=== PATIENT | male | born 1945 | race Caucasian/White ===

== ENCOUNTER 2016-05-20 14:08 | Inpatient (IN) | payer MEDICARE ==
[~2016-05-20] VITALS: Ht 182.9 cm; Wt 94.2 kg
[~2016-05-20 14:08] MED LIST: LISI2.5T3 PO; LORA1TAB PO; LORTA5 PO; LOVA20TA PO; METO25 PO; PREV30CA36 PO; PROS5TAB2 PO; REST15CA PO; RIVA10 PO; SERT-129 PO; TAMS0.4C67 PO; VITA20002 PO
--- NOTE | 2016-05-24 05:26 | MH ---
cc: CHRIS MERCER DATE OF ADMISSION: 06/01/2016 ADMITTING DIAGNOSIS Osteoarthritis of the right hip, effusion right hip, pain right hip, gait disturbance. HISTORY The patient is a 70-year-old white male who has experienced pain of his right hip of at least 6 months' duration. He had noted the gradual onset of soreness generalized about his right groin area being aggravated by weightbearing activities for which he initially conformed to conservative management. He had initially followed a walking exercise program but became markedly limited because of the associated pain and had a sensation of limb length discrepancy with shortening on the right side. He presented to the undersigned physician in March of this past year reporting ongoing difficulties as related to his daily routine. His x-ray studies revealed obvious degenerative changes with narrowing of the joint space and marginal hypertrophic bony reaction. Findings and treatment options were reviewed with the patient at that time. Recommendation was made to proceed with a MRI scan evaluation which was subsequently completed, the results of which identified a degenerative arthritis with narrowing of the articular cartilage and edema in the subcortical medullary bone in the roof of the acetabulum. There was separation of the labrum about the rim of the acetabulum and an effusion within the joint space. The patient remained symptomatic with pain generalized about his right groin area that was aggravated by all forms of weightbearing activities. He had to subsequently discontinue all exercise activities which had included playing golf and returned to the office in more recent follow-up expressing his desire to proceed with a more definitive course of treatment. The involvement of total hip arthroplasty was outlined in detail with emphasis being made that the decision to proceed with surgery would be left entirely to the patient's discretion. He readily admitted that his discomfort had progressed to such a point in time where he felt he was in need of such treatment and in compliance with his wishes he is currently being admitted in order that the above be accomplished. PAST MEDICAL HISTORY, HOSPITALIZATIONS AND SURGERIES 1. Tonsillectomy. 2. Bilateral cataract excision with intraocular lens implants. 3. Colonoscopy. 4. Bilateral total knee arthroplasty. 5. Right reverse shoulder arthroplasty. 6. Medical management for history of a ruptured esophagus. MEDICAL ILLNESSES 1. Hypertension. 2. Acid reflux. 3. Anxiety. 4. Depression. 5. BPH. CURRENT MEDICATIONS 1. Flomax 0.4 mg daily. 2. Prevacid daily. 3. Lovastatin 20 mg daily. 4. Metoprolol 25 mg daily. 5. Finasteride 5 mg daily. 6. Ativan 0.5 mg p.r.n. 7. Temazepam 15 mg at bedtime. ALLERGIES The patient denies any known drug allergies. REVIEW OF SYSTEMS He wears glasses. No headache or syncope. 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 Auditory acuity intact. No tinnitus. No bleeding gums or dysphagia. Denies cough, shortness of breath, upper respiratory infection, pneumonia or tuberculosis. No angina or heart disease. He is medically managed for hypertension. Appetite good bowel movements regular. No hepatitis, gallbladder disease, ulcers or hemorrhoids. He has had urinary tract infection in the past. No kidney stones. Reporting one functioning kidney on the right side. Positive history for BPH. No previous fractures. No psychiatric illness, although he has been treated for depression and anxiety. His remaining review of systems is unremarkable and noncontributory. FAMILY HISTORY The patient has cohabited for over 20 years. His cohabitation partner is 70 years of age and described as being in good health. There are no children. FAMILY HISTORY Positive for hypertension, dementia and Alzheimer's disease. SOCIAL HISTORY The patient completed a college education. He has been retired for over 6 years from active employment. He has a history of heavy ethanol consumption in the past. Drinks on a social basis currently. He has been a heavy smoker with a 50 pack-year use of tobacco. At his peak he smoked two packs per day but currently limits to no more than two to three cigarettes daily. PHYSICAL EXAMINATION GENERAL: Height 6 feet, weight 204 pounds. An alert, oriented and responsive 70-year-old white male who sits quietly upon the examination table with no obvious distress. HEAD, EYES, EARS, NOSE, AND THROAT: Pupils are equally round and reactive to light. Extraocular movements full. Sclerae clear. External nares clear. External auditory canals clear. Dental intact. Mucous membranes pink and moist. Pharynx clear. NECK: Supple. Active range of motion with minimal discomfort at the extreme of mobility indicated to be chronic in nature. Carotid pulse palpable bilaterally. Trachea midline. Thyroid without enlargement. LUNGS: Clear to auscultation and percussion. BACK: No CVA tenderness. No discomfort throughout the dorsal lumbar spine. HEART: Regular rhythm. No murmur or gallop. ABDOMEN: Soft, nontender. Bowel sounds present. RECTAL: Per primary care physician. EXTREMITIES: Right hip - There is no localizing tenderness to palpation. There is restricted mobility of the hip joint being most pronounced with internal rotation and pain at the extremes of motion. No associated sensation of crepitation or instability. Straight-leg raising unremarkable at 80 degrees. Edin's sign is positive. Distal sensory grossly intact. A very subtle suggestion for limb length discrepancy with shortening on the right side. Antalgic gait. Neurologic: Cranial nerves II-XII grossly intact. IMPRESSION Osteoarthritis right hip, effusion right hip, pain right hip, gait disturbance. PLAN Right total hip arthroplasty. The nature of the planned surgical procedure, the potential complications and risks associated, the expectations of surgery and the consent form were thoroughly reviewed with Sven prior to his admission to the hospital. He has indicated his full understanding regarding all of the above and given consent to proceed with treatment as outlined. Medical evaluation and clearance for surgery will be completed by his primary care physician, Dr. Song Pineda. Chris Mercer MD NBS/SSB /4:52 PM /5:11 AM
--- NOTE | 2016-05-31 17:36 | MH ---
cc: CHRIS ORELLANA DATE OF ADMISSION: 06/01/2016 ADMITTING DIAGNOSIS: Osteoarthritis of his right hip. ADDENDUM: For clarification purposes with regards to the patient's treatment intervention prior to undergoing operative management of his right hip. Medications prior to surgery have included: 1. Diclofenac 75 milligrams. 2. Prednisone 10 milligrams. 3. Hydrocodone 7.5/325. All taken without significant relief of the patient's pain management. He also required the use of a walker as an ambulatory aid and in spite of intervention became increasingly more symptomatic with pain. He was unable to follow through with therapy intervention having tried to conform to his own exercise program which initially had included playing golf and later transitioning to a walking exercise regimen, but because of the progressive nature of his pain and associated incapacitation, he was unable to continue with this routine. Because of the progressive nature of his symptoms and his ongoing difficulties as related to all weightbearing activities as well as findings of his clinical examination and MRI scan which has been previously outlined, he is currently being admitted to the hospital in order that total hip arthroplasty be accomplished. MD AMADO Howe/NILSA /5:24 PM /5:29 PM
[2016-06-01] MEDS ORDERED: METOPROLOL TARTRATE 25 MG TAB PO PRN (07:30)
[2016-06-01] MEDS ORDERED: LACTATED RINGER'S 1000 ML IV SCH (07:30)
[2016-06-01] MEDS: POVIDONE IODINE 7.5% SCRUB 118 ML BOTTLE TOP SCH (07:30)
[2016-06-01] MEDS ORDERED: TRANEXAMIC ACID 1 GM PRIOR TO PROCEDURE IV SCH ×2 (07:30)
[2016-06-01] MEDS ORDERED: SODIUM CHLORID 0.9% 500 ML IV SCH (07:30)
[2016-06-01] MEDS ORDERED: INSULIN HUMAN REGULAR 1,000 UNITS/10 ML VIAL SQ PRN (07:30)
[2016-06-01] MEDS ORDERED: PROS5TAB PO (07:53)
[2016-06-01] MEDS ORDERED: LOVA20TA PO (07:53)
[2016-06-01] MEDS ORDERED: PREV30CA11 PO (07:53)
[2016-06-01] MEDS ORDERED: LORA-474 PO (07:53)
[2016-06-01] MEDS ORDERED: METO50TA PO (07:53)
[2016-06-01] MEDS ORDERED: DOXE50CA3 PO (07:53)
[2016-06-01] MEDS ORDERED: TAMS5CAP PO (07:53)
[2016-06-01 07:54] VITALS: BP 160/90; PULSE 71; RESP 18; TEMP 97.6; O2SAT 95
[2016-06-01 07:58] LABS: AUTOMATED NEUTROPHIL # 5.3 TH/MM3 (1.8-7.7); BASOPHIL # 0.1 TH/MM3 (0-0.2); BASOPHIL % 0.7 % (0.0-2.0); EOSINOPHIL # 0.3 TH/MM3 (0-0.4); EOSINOPHIL % 3.5 % (0.0-4.0); HEMATOCRIT 39.1 % (39.0-51.0); HEMO FLAGS DIFF FINAL; LYMPH % 21.6 % (9.0-44.0); LYMPHOCYTE # 1.8 TH/MM3 (1.0-4.8); MEAN CELL VOLUME 94.9 FL (80.0-100.0); MEAN CORPUSCULAR HEMOGLOBIN 32.4 PG (27.0-34.0); MEAN CORPUSCULAR HGB CONC 34.2 % (32.0-36.0); MONO % 8.9 % (0.0-8.0); NEUT % 65.3 % (16.0-70.0); PLATELET COUNT 237 TH/MM3 (150-450); RED BLOOD COUNT 4.12 MIL/MM3 (4.50-5.90); RED CELL DISTRIBUTION WIDTH 13.4 % (11.6-17.2); WHITE BLOOD COUNT 8.1 TH/MM3 (4.0-11.0)
[2016-06-01 08:00] LABS: BACTERIA, URINE RARE /hpf; BLOOD, URINE NEG (NEG); GLUCOSE,URINE NEG (NEG); HYALINE CAST, URINE 1 /lpf (RARE); KETONE, URINE NEG (NEG); MUCUS URINE FEW /lpf (OCC); NITRITE,URINE NEG (NEG); PH, URINE 5.5 (5.0-8.5); URINE COLOR YELLOW (YELLW/STRAW)
[2016-06-01 08:06] LABS: BICARBONATE 26.5 MEQ/L (21.0-32.0); POTASSIUM 3.8 MEQ/L (3.5-5.1); PROTHROMBIN TIME - PATIENT 10.8 SEC (9.8-11.6)
--- NOTE | 2016-06-01 08:11 | RADRPT ---
EXAM DATE/TIME: 06/01/2016 06:58 [facility] COMPARISON: CHEST SINGLE AP, December 31, 2014, 13:33. INDICATIONS: Pre-op right hip. Evaluate for Pneumonia, Pneumothorax, or communicable diseases. MEDICAL HISTORY: None. SURGICAL HISTORY: Right shoulder. ENCOUNTER: Initial ACUITY: 1 day PAIN SCORE: 0/10 LOCATION: Bilateral chest FINDINGS: The heart is stable. The pulmonary vascular pattern is normal. Fibrotic scarring and/or atelectasis is noted within the left mid lung field. An old healed fracture of the left lateral 6th rib is noted . a right shoulder prosthesis is noted. CONCLUSION: 1. No acute cardiopulmonary disease. Efren Jackson MD on June 01, 2016 at 8:05 Board Certified Radiologist. This report was verified electronically.
[2016-06-01 08:14] LABS: COMMENT (UR) CULT NOT INDICATED; CULTURE IF INDICATED CULT NOT INDICATED
[2016-06-01] MEDS: ceFAZolin 2 GM PREMIX 50 ML IV SCH ×2 (08:30→08:31)
[2016-06-01] MEDS: TRANEXAMIC ACID 1 GM POST-OP IV SCH ×4 (08:32→11:35)
[2016-06-01] MEDS ORDERED: HEPARIN SODIUM - SQ 10,000 UNITS/ML VIAL ONE (09:00)
[2016-06-01] MEDS ORDERED: ceFAZolin INJ 1,000 MG VIAL ONE (09:06)
[2016-06-01] MEDS ORDERED: FAMOTIDINE 20 MG/2 ML VIAL ONE (09:26)
[2016-06-01] MEDS ORDERED: DEXAMETHASONE SOD PHOS 4 MG/ML VIAL ONE (09:26)
[2016-06-01] MEDS ORDERED: MAGNESIUM HYDROXIDE SUSP 30 ML CUP PO PRN (12:15)
[2016-06-01] MEDS ORDERED: diphenhydrAMINE HCL 25 MG CAP PO PRN (12:15)
[2016-06-01] MEDS ORDERED: Post-op Orders (for Pharmacy) MISC XX ONE (12:15)
[2016-06-01] MEDS ORDERED: SODIUM CHLORIDE 0.9% FLUSH 5 ML FLUSH IVF PRN (12:15)
[2016-06-01] MEDS ORDERED: DOCUSATE SODIUM 100 MG CAP PO PRN (12:15)
[2016-06-01] MEDS ORDERED: ACETAMINOPHEN 325 MG TAB PO PRN (12:15)
[2016-06-01] MEDS ORDERED: oxyCODONE/ACETAMINOPHEN 5 MG/325 MG TAB PO PRN (12:15)
[2016-06-01] MEDS ORDERED: ZOLPIDEM TARTRATE 5 MG TAB PO PRN (12:15)
[2016-06-01] MEDS ORDERED: PROMETHAZINE INJ 25 MG/ML VIAL IM PRN (12:15)
[2016-06-01] MEDS ORDERED: MORPHINE SULFATE 30 MG/30 ML PCA IV SCH (12:15)
[2016-06-01] MEDS ORDERED: NALOXONE HCL 0.4 MG/ML AMP IV PRN (12:15)
[2016-06-01] MEDS ORDERED: MISCELLANEOUS PHARMACY INFORMATION XX ONE (12:15)
[2016-06-01] MEDS ORDERED: BISACODYL 10 MG SUPP PR PRN (12:15)
[2016-06-01] MEDS ORDERED: TRANEXAMIC ACID INJ 1,000 MG in SODIUM CHLORIDE 0.9% INJ 100 ML IV SCH (12:15)
[2016-06-01] MEDS ORDERED: *RESP: ALBUTEROL 2.5 MG/3 ML NEB (PRN) PERIprocedural Use ONLY NEB ONE (12:18)
[2016-06-01] MEDS ORDERED: MIDAZOLAM HCL 2 MG/2 ML VIAL ONE (12:23)
[2016-06-01] MEDS ORDERED: fentaNYL CITRATE 250 MCG/5 ML AMP ONE (12:23)
[2016-06-01] MEDS ORDERED: *ONDANSETRON 4 MG VIAL PERIprocedural Use ONLY ONE (12:28)
[2016-06-01] MEDS: DEXT 5%-NACL 0.45% 1000 ML INJ 1,000 ML IV SCH ×2 (12:30→20:10)
[2016-06-01] MEDS ORDERED: PROPOFOL 200 MG/20 ML AMP IV ONE (13:50)
[2016-06-01] MEDS ORDERED: ePHEDrine/NS 25 MG/5 ML SYR IV ONE (13:50)
[2016-06-01] MEDS ORDERED: LACTATED RINGER'S 1000 ML INJ 1,000 ML IV ONE (13:50)
[2016-06-01] MEDS ORDERED: PHENYLEPH/NS 1000 MCG/10 ML SYR IV ONE (13:50)
--- NOTE | 2016-06-01 13:51 | RADRPT ---
EXAM DATE/TIME: 06/01/2016 12:50 [facility] COMPARISON: No previous studies available for comparison. INDICATIONS : Post op right hip surgery. MEDICAL HISTORY : None. SURGICAL HISTORY : None. ENCOUNTER: Initial ACUITY: 1 day PAIN SCORE: 0/10 LOCATION: Right hip FINDINGS: The patient is status post a total hip arthroplasty with a bipolar prosthesis. Prosthesis is well-sea kayode. Alignment is anatomic. A fracture is not appreciated. CONCLUSION: Anatomic alignment. Pardeep Franco MD FACR Board Certified Radiologist. This report was verified electronically.
[2016-06-01] MEDS: PCA - TOTAL MG MORPHINE DELIVERED PER SHIFT SCH ×2 (14:00→20:46)
--- NOTE | 2016-06-01 14:20 | PD.CONS ---
[facility] Request[facility] By Reason for Consult medical management Primary Care Physician No Primary Care Physician Diagnoses: History of Present Illness patient is a 70 y/o male with history of osteoarthritis,hypertension and dyslipidemia who underwent right total hip arthroplasty today. at the time of my evaluation he was resting comfortably with no acute distress. he's complaining of mild nausea- pain is fairly controlled. he denies any chest pain , sob or abdominal pain. Review of Systems Constitutional: DENIES: Fever, Weight loss, Chills, Night Sweats Eyes: DENIES: Blurred vision, Diplopia, Vision loss, Double Vision Ears, nose, mouth, throat: DENIES: Tinnitus, Vertigo, Throat pain, Epistaxis Respiratory: DENIES: Apneas, Cough, Snoring, Wheezing, Hemoptysis, Sputum production, Shortness of breath Cardiovascular: DENIES: Chest pain, Palpitations, Syncope, Dyspnea on Exertion , PND, Lower Extremity Edema, Orthopnea, Claudication Gastrointestinal: COMPLAINS OF: Nausea, DENIES: Abdominal pain, Black stools, Bloody stools, Constipation, Diarrhea, Vomiting, Difficulty Swallowing, Anorexia Genitourinary: DENIES: Urinary frequency, Urgency, Hematuria, Dysuria Musculoskeletal: COMPLAINS OF: Joint pain (right hip), DENIES: Muscle aches, Stiffness, Joint Swelling Integumentary: DENIES: Rash Neurologic: DENIES: Abnormal gait, Headache, Localized weakness, Paresthesias, Seizures, Speech Problems, Tremor, Poor Balance Psychiatric: DENIES: Anxiety, Confusion, Mood changes, Depression, Hallucinations, Agitation, Suicidal Ideation, Homicidal Ideation, Delusions Past Family Social History Allergies: Coded Allergies: No Known Allergies (Unverified , 09/05/15) Past Medical History hypertension dyslipidemia BPH Past Surgical History knee replacement/ shoulder surgery. Reported Medications metoprolol lovastatin flomax doxepin proscar prevacid Active Ordered Medications Current Medications Povidone Iodine 1 applic 1 applic ONCE TOP ; Start 06/01/16 at 07:30; Stop at 07:29 Cefazolin Sodium/ Dextrose 50 ml @ 100 mls/hr CHAIN MAKER LOOM CONTROL IV Last administered on 06/01/16t 08:31; Start 06/01/16 at 07:30; Stop 06/04/16 at 07:29 Tranexamic Acid 1000 mg/Sodium Chloride 110 ml @ 220 mls/hr ONCE IV ; Start 06/01/16 at 07:30; Stop 06/01/16 at 13:30; Status DC Tranexamic Acid 1000 mg/Sodium Chloride 110 ml @ 220 mls/hr ONCE IV Last administered on 06/01/16 11:35; Start 06/01/16 at 10:30; Stop 06/01/16 at 16:30 Lactated Ringer's 1,000 ml @ 30 mls/hr Q24H IV Last administered on 06/01/16 07:30; Start 06/01/16 at 07:30 Sodium Chloride (NS 500 ml Inj) 500 ml @ 30 mls/hr [id number] IV ; Start 06/01/16 at 07:30; Stop 06/02/16 at 07:29 Insulin Human Regular (NovoLIN R INJ) See Protocol Table ... UNSCH X1 PRN SQ SEE PROTOCOL; Start 06/01/16 at 07:30; Stop 06/02/16 at 07:29 Metoprolol Tartrate (Lopressor) 25 mg UNSCH X1 PRN PO SEE LABEL COMMENTS; Start 06/01/16 at 07:30; Stop 06/02/16 at 07:29 Heparin Sodium (Porcine) (Heparin Inj) 30,000 units STK-MED ONCE .ROUTE ; Start 06/01/16 at 09:00; Stop 06/01/16 at 09:01; Status DC Cefazolin Sodium (Ancef Inj) 2,000 mg STK-MED ONCE .ROUTE Last administered on 06/01/16 10:17; Start 06/01/16 at 09:06; Stop 06/01/16 at 09:07; Status DC Famotidine (Pepcid Inj) 20 mg STK-MED ONCE .ROUTE ; Start 06/01/16 at 09:26; Stop 06/01/16 at 09:27; Status DC Dexamethasone Sodium Phosphate 4 mg 4 mg STK-MED ONCE .ROUTE ; Start 06/01/16 at 09:26; Stop 06/01/16 at 09:27; Status DC Dextrose/Sodium Chloride (D5W-1/2 NS 1000 ml Inj) 1,000 ml @ 125 mls/hr Q8H IV ; Start 06/01/16 at 12:10 IV Flush (NS Flush) 2 ml UNSCH PRN IVF FLUSH AFTER USING IV ACCESS; Start at 12:15 IV Flush 2 ml 2 ml BID IVF ; Start 06/01/16 at 21:00 Cefazolin Sodium/ Sodium Chloride (Ancef Inj/NS Inj) 100 ml @ 200 mls/hr Q6H IV ; Start 06/01/16 at 14:00; Stop 06/02/16 at 02:29 Miscellaneous Information (Post-op Orders (for Pharmacy)) STAT ONCE XX ; Start 06/01/16 at 12:15; Stop 06/01/16 at 12:49; Status DC Rivaroxaban (Xarelto) 10 mg Q24H PO ; Start 06/02/16 at 11:00 Miscellaneous Medication ([facility] Information) ONCE ONCE XX ; Start 06/01 at 12:15; Stop 06/01/16 at 12:23; Status DC Oxycodone/ Acetaminophen (Percocet 5-325 Mg) 1 tab Q4H PRN PO PAIN LESS THAN 5 ON SCALE; Start 06/01/16 at 12:15 Oxycodone/ Acetaminophen (Percocet 5-325 Mg) 2 tab Q4H PRN PO PAIN SCALE 5 TO 10; Start 06/01/16 at 12:15 Acetaminophen 650 mg 650 mg Q6H PRN PO FEVER > 101; Start 06/01/16 at 12:15 Tranexamic Acid/ Sodium Chloride (Cyklokapron Inj/ NS Inj) 110 ml @ 200 mls/hr UNSCH IV ; Start 06/01/16 at 12:15; Stop 06/01/16 at 12:24; Status DC Docusate Sodium (Colace) 100 mg BID PRN PO CONSTIPATION; Start 06/01/16 at 12:15 Zolpidem Tartrate (Ambien) 5 mg HS PRN PO SLEEP; Start 06/01/16 at 12:15 Bisacodyl (Dulcolax Supp) 10 mg DAILY PRN [place] CONSTIPATION; Start 06/01/16 at 12: 15 Magnesium Hydroxide (Milk Of Magnesia Liq) 30 ml DAILY PRN PO CONSTIPATION; Start 06/01/16 at 12:15 Naloxone HCl (Narcan Inj) 0.4 mg UNSCH PRN IV RESPIRATORY RATE LESS THAN 10; Start 06/01/16 at 12:15 Diphenhydramine HCl (Benadryl) 25 mg Q6H PRN PO ITCHING; Start 06/01/16 at 12:15 Morphine Sulfate (Morphine 1 Mg/ ml POKE IN) 30 mg UNSCH IV ; Start 06/01/16 at 12:15 ; Stop 06/03/16 at 12:14 POKE IN Dosage Infused (Pha) 1 Q8HR .XX ; Start 06/01/16 at 14:00 Promethazine HCl (Phenergan Inj) 25 mg Q6H PRN IM NAUSEA OR VOMITING; Start 06/01/16 at 12:15 Albuterol Sulfate (*ALBUTEROL NEB PERIprocedure ONLY) 2.5 mg STK-MED ONCE NEB ; Start 06/01/16 at 12:18; Stop 06/01/16 at 12:19; Status DC Midazolam HCl (Versed Inj) 2 mg STK-MED ONCE .ROUTE ; Start 06/01/16 at 12:23; Stop 06/01/16 at 12:24; Status DC Fentanyl Citrate (fentaNYL INJ) 250 mcg STK-MED ONCE .ROUTE ; Start 06/01/16 at 12:23; Stop 06/01/16 at 12:24; Status DC Fentanyl Citrate (fentaNYL INJ) 100 mcg STK-MED ONCE .ROUTE ; Start 06/01/16 at 12:23; Stop 06/01/16 at 12:24; Status DC Ondansetron HCl (*ZOFRAN INJ PERIprocedural ONLY) 4 mg STK-MED ONCE .ROUTE ; Start 06/01/16 at 12:28; Stop 06/01/16 at 12:29; Status DC Family History dementia in father/ mother. Social History smokes 3-5 cigarettes a day- drinks occasionally. Physical Exam Vital Signs Vital Signs Date Time Temp Pulse Resp B/P Pulse Ox O2 Delivery O2 Flow Rate FiO2 06/01/16 12:15 97.8 85 14 121/69 91 Nasal Cannula 4 06/01/16 07:54 97.6 71 18 160/90 95 Physical Exam GENERAL: This is a well-nourished, well-developed patient, in no apparent distress. HEAD: Atraumatic. Normocephalic. No temporal or scalp tenderness. EYES: Pupils equal round and reactive. Extraocular motions intact. No scleral icterus. No injection or drainage. ENT: Nose without bleeding, purulent drainage or septal hematoma. Throat without erythema, tonsillar hypertrophy or exudate. Uvula midline. Airway patent. NECK: Trachea midline. No JVD or lymphadenopathy. Supple, nontender, no meningeal signs. CARDIOVASCULAR: Regular rate and rhythm without murmurs, gallops, or rubs. RESPIRATORY: Clear to auscultation. Breath sounds equal bilaterally. No wheezes , rales, or rhonchi. GASTROINTESTINAL: Abdomen soft, non-tender, nondistended. No hepato-splenomegaly , or palpable masses. No guarding. MUSCULOSKELETAL: Extremities without clubbing, cyanosis, or edema. No joint tenderness, effusion, or edema noted. No calf tenderness. Negative Homans sign bilaterally. NEUROLOGICAL: Awake and alert. Cranial nerves II through XII intact. Motor and sensory grossly within normal limits. Five out of 5 muscle strength in all muscle groups. Normal speech. Laboratory Laboratory Tests Test 06/01/16 07:35 White Blood Count 8.1 Red Blood Count 4.12 Hemoglobin 13.3 Hematocrit 39.1 Mean Corpuscular Volume 94.9 Mean Corpuscular Hemoglobin 32.4 Mean Corpuscular Hemoglobin 34.2 Concent Red Cell Distribution Width 13.4 Platelet Count 237 Mean Platelet Volume 7.8 Neutrophils (%) (Auto) 65.3 Lymphocytes (%) (Auto) 21.6 Monocytes (%) (Auto) 8.9 Eosinophils (%) (Auto) 3.5 Basophils (%) (Auto) 0.7 Neutrophils # (Auto) 5.3 Lymphocytes # (Auto) 1.8 Monocytes # (Auto) 0.7 Eosinophils # (Auto) 0.3 Basophils # (Auto) 0.1 CBC Comment DIFF FINAL Differential Comment Prothrombin Time 10.8 Prothromb Time International 1.0 Ratio Urine Color YELLOW Urine Turbidity CLEAR Urine pH 5.5 Urine Specific [place] 1.016 Urine Protein NEG Urine Glucose (UA) NEG Urine Ketones NEG Urine Occult Blood NEG Urine Nitrite NEG Urine Bilirubin NEG Urine Urobilinogen LESS THAN 2.0 Urine Leukocyte Esterase NEG Urine RBC LESS THAN 1 Urine WBC LESS THAN 1 Urine Bacteria RARE Urine Hyaline Casts 1 Urine Mucus FEW Microscopic Urinalysis Comment CULT NOT INDICATED Sodium Level 138 Potassium Level 3.8 Chloride Level 103 Carbon Dioxide Level 26.5 Anion Gap 9 Blood Urea Nitrogen 17 Creatinine 1.40 Estimat Glomerular Filtration 50 Rate Random Glucose 101 Calcium Level 8.5 Blood Type A POSITIVE Antibody Screen NEGATIVE Crossmatch Leukocyte-Reduced Red Blood Cells Blood Bank Comment Result Diagram: 06/01/16 0735 06/01/16 0735 Imaging Last Impressions Hip X-Ray 06/01/16 1210 Signed Impressions: Service Date/Time: Wednesday, June 01, 2016 12:50 - CONCLUSION: Anatomic alignment. Pardeep Franco MD Chest X-Ray 06/01/16 0655 Signed Impressions: Service Date/Time: Wednesday, June 01, 2016 06:58 - CONCLUSION: 1. No acute cardiopulmonary disease. Efren Jackson MD Assessment and Plan Assessment and Plan A/P - osteoarthritis of the right hip- s/p right total hip arthroplasty continue with pain control and PT- management per ortho. -hypertension/ dyslipidemia; resume home meds -chronic renal insufficiency- will monitor -BPH; resume home meds -DVT prophylaxis with xarelto-per ortho. thank you for the consult. Discussed Condition With the patient and RN. Monique Montgomery MD Jun 01, 2016 14:20
[2016-06-01] MEDS ORDERED: LORazepam 1 MG TAB PO PRN (14:30)
[2016-06-01 17:00] VITALS: BP 128/77; PULSE 83; RESP 18; TEMP 97; O2SAT 96
[2016-06-01 19:48] VITALS: BP 149/84; PULSE 88; RESP 20; TEMP 96.6; O2SAT 94
[2016-06-01] MEDS: SODIUM CHLORIDE 0.9% FLUSH 5 ML FLUSH IVF SCH (20:46)
[2016-06-01] MEDS: DOXEPIN HCL 50 MG CAP PO SCH (21:18)
[2016-06-02 00:30] VITALS: BP 141/71; PULSE 78; RESP 19; TEMP 97.3; O2SAT 94
[2016-06-02 03:45] VITALS: BP 133/75; PULSE 70; RESP 18; TEMP 96.5; O2SAT 93
[2016-06-02] MEDS: DEXT 5%-NACL 0.45% 1000 ML INJ 1,000 ML IV SCH ×2 (04:10→12:10)
[2016-06-02] MEDS ORDERED: ASPI325T PO (05:45)
[2016-06-02] MEDS ORDERED: OXYC1TAB63 PO (05:45)
--- NOTE | 2016-06-02 05:49 | HHI.FF ---
Face to Face Verification Diagnosis: (1) Degenerative joint disease of right hip Physical Therapy Gait training Hip: Total hip, Protocol: Right, Abduction pillow while in bed Right LE Weight Bearing: WB as tolerated Right LE Range of Motion: Active ROM Nursing Dressing Changes: Daily dressing change I have seen patient Sven RandallJr on 06/02/16. My clinical findings support the need for the requested home health care services because: Limited ability to care for self Impaired cognition/judgement High risk of falls I certify that my clinical findings support that this patient is homebound because: Post-op weakness Unsteady gait/balance Unsafe to leave home unassisted Quoc Mercer MD Jun 02, 2016 05:49
[2016-06-02] MEDS ORDERED: WALKER WHEELS/F1 MIS (05:55)
[2016-06-02] MEDS ORDERED: 3-IN3MIS PR (05:55)
[2016-06-02] MEDS: PCA - TOTAL MG MORPHINE DELIVERED PER SHIFT SCH ×3 (06:00→22:00)
[2016-06-02 07:01] LABS: HEMATOCRIT 33.8 % (39.0-51.0); REVIEW FLAG FINAL
--- NOTE | 2016-06-02 07:18 | MP ---
cc: CHRIS MERCER DATE OF SURGERY 06/01/2016 PREOPERATIVE DIAGNOSIS Osteoarthritis of the right hip, effusion right hip, pain right hip and gait disturbance. POSTOPERATIVE DIAGNOSIS Osteoarthritis of the right hip, effusion right hip, pain right hip and gait disturbance. PROCEDURE Right total hip arthroplasty SURGEON Chris Mercer MD ANESTHESIA General endotracheal INDICATIONS A 70-year-old white male who has experienced pain of his right hip of at least six months duration. He had noted the gradual onset of soreness generalized about the right groin area being aggravated by weightbearing activities for which he was initially conformed to conservative management. He had been conforming to a walking exercise program but became markedly limited with regards to pain as well as sensation of limb length discrepancy with shortening on the right side. He presented to the undersigned physician in March of this past year reporting ongoing difficulty as related to his daily routine. His x-ray studies did reveal obvious degenerative changes with narrowing of the joint space and marginal hypertrophic bony reaction. Findings and treatment options were reviewed with the patient at that time. Recommendation was made to proceed with MRI scan the results of which identified degenerative arthritis and narrowing of the articular cartilage and edema of the subcortical medullary bone in the roof of the acetabulum was separation of the labrum about the rim of the acetabulum and an effusion with joint space narrowing. The patient continued to remain symptomatic with pain about the hip and groin area. He had been taking diclofenac 75 mg, prednisone 10 mg and hydrocodone 7.5 mg without any significant relief of his symptoms being noted. As he became increasingly more symptomatic, he was unable to conform to any type of exercise activities where he had previously played golf on a routine basis. His symptoms progressed to a point in time where he began to require the use of a walker as a full-time ambulatory aid. He returned to the office more recently indicating that he was having considerable difficulty as related to all weightbearing activities and expressed his desire to proceed with a more definitive course of treatment. The involvement of total knee arthroplasty was outlined in detail with emphasis being made that the decision to proceed with surgery would be left entirely to the patient's discretion. He readily admitted that his discomfort had progressed to such a point in time and was ready to proceed in this direction. In compliance with his wishes, he was scheduled for admission at this time in order that total hip replacement be completed. FORMAT Following the induction of satisfactory general anesthesia by endotracheal intubation as completed per the Department of Anesthesia, the patient was positioned upon the operating table in a left lateral decubitus fashion. The right hip and lower extremity proper was isolated with a U drape thereafter being prepped with Betadine solution and draped into a sterile field in the routine manner. Prior to initiation of the actual procedure, the standard time-out protocol was completed. All parameters were appropriately addressed and confirmed by operating room personnel. A standard posterolateral approach to the hip was initiated through a sharp skin incision and developed through underlying subcutaneous tissue with hemostasis maintained by electrocautery. By deepening dissection, the fascia overlying the gluteus musculature was exposed and thereafter sharply incised to the limits of the incision. The underlying gluteus fibers were divided with the Bovie on cutting current. Progressive dissection facilitated exposure of the short external rotators structures. The piriformis tendon was utilized as an anatomical landmark and division of these structures was completed in a superior to inferior orientation reflected medially exposing the posterior capsule. The sciatic nerve was protected. An L-shaped capsulotomy was accomplished through which a posterior dislocation of the femoral head was completed. Examination revealed significant degenerative changes with complete erosion of articular cartilage and hypertrophic bony reaction. The femoral template was positioned for alignment orientation. The neck was scored and thereafter divided with power saw. The amputated segment being passed to the back table as surgical specimen. Attention was initially directed the proximal femur. Cancellus bone was harvested. The tapered reamer was inserted for alignment orientation. Sequential rasping and broaching was accomplished from 7-12 mm with the calcar jan being utilized with a 12 mm stage. The 12 mm stem was determined to be a favorable fit. The trial component being removed, attention was redirected to the acetabulum. The labrum and reactive soft tissue were sharply excised. Progressive reaming was accomplished from 50-56 mm. The 56 trial shell was positioned and determined to be satisfactory. Trial component being removed, the wound was copiously irrigated with pulsating antibiotic solution. Hemostasis maintained by electrocautery. Harvested cancellous bone was digitally impacted into the depths of the acetabulum and thereafter the 56 mm ring lock acetabular shell was firmly seated in approximately 45 degrees inclination to the horizontal and slight anteversion. A single 25 mm 6.5 cancellous screw was inserted superiorly to augment fixation. The permanent high wall acetabular liner was affixed to the acetabular shell. Attention was redirected to the proximal femur. The 12 mm trial femoral broach was repositioned and trial reductions followed utilizing a 36 mm modular head with both -6 and -3 neck length adapters trialed. The -3 sizing was determined to be the more favorable fit. The hip was flexed to 90 degrees and internally rotated to 45 degrees with stability of the joint being maintained. An open dislocation completed, the trial femoral components being removed, the canal was thoroughly irrigated and dried and thereafter a 12 mm Echo biometric standard femoral stem was firmly seated to which a 36 mm ceramic head with -3 mm neck length adapter attached. An open reduction completed and a repeat range of motion again noted stability as previously described. Final irrigation was accomplished with hemostasis maintained. The posterior capsule was repaired with 0 Vicryl suture. Piriformis tendon and short external rotator structures were reapproximated in a similar manner. Hemovac drain tubes were inserted through superior stab wounds. The fascia of the gluteus musculature was reapproximated with a running 0 Vicryl suture. The remaining portion of the wound was closed in layers in the routine manner with skin margins being reapproximated with a running subcuticular 3-0 Vicryl suture over which Steri-Strips were applied. Xeroform gauze and a bulky dry sterile dressing were placed. The patient was repositioned into a supine orientation where an abduction splint was attached. Anesthesia was discontinued. He was thereafter transferred to a hospital bed and returned to the recovery room in satisfactory condition having tolerated his operative procedure well. Estimated blood loss was approximately 350 cc as determined per anesthesia. All implants were of the [employer] elastic yarn twister helper. MD AAMDO Howe/FELICITAS /12:03 PM /7:01 AM
[2016-06-02] MEDS: POVIDONE IODINE 7.5% SCRUB 118 ML BOTTLE TOP SCH (07:30)
[2016-06-02 08:00] VITALS: BP 153/86; PULSE 89; RESP 19; TEMP 99.2; O2SAT 92
[2016-06-02] MEDS: TAMSULOSIN HCL 0.4 MG CAP PO SCH (09:32)
[2016-06-02] MEDS: PANTOPRAZOLE SOD 40 MG DELAYED RELEASE TAB PO SCH (09:32)
[2016-06-02] MEDS: PRAVASTATIN SOD 20 MG TAB PO SCH (09:32)
[2016-06-02] MEDS: METOPROLOL TARTRATE 50 MG TAB PO SCH (09:32)
[2016-06-02] MEDS: FINASTERIDE 5 MG TAB PO SCH (09:32)
[2016-06-02] MEDS: oxyCODONE/ACETAMINOPHEN 5 MG/325 MG TAB PO PRN ×4 (09:33→21:34)
[2016-06-02] MEDS: SODIUM CHLORIDE 0.9% FLUSH 5 ML FLUSH IVF SCH ×2 (09:33→21:31)
[2016-06-02] MEDS: RIVAROXABAN 10 MG TAB PO SCH (11:05)
[2016-06-02 11:57] VITALS: BP 129/80; PULSE 74; RESP 18; TEMP 97.6; O2SAT 92
--- NOTE | 2016-06-02 13:40 | HHI.PR ---
Subjective Remarks resting comfortably with no distress. pain is fairly controlled. d/w the RN. Objective Vitals Vital Signs Date Time Temp Pulse Resp B/P Pulse Ox O2 Delivery O2 Flow Rate FiO2 06/02/16 11:57 97.6 74 18 129/80 92 06/02/16 08:00 99.2 89 19 153/86 92 06/02/16 03:45 96.5 70 18 133/75 93 06/02/16 00:30 97.3 78 19 141/71 94 06/01/16 22:05 Nasal Cannula 2.00 06/01/16 20:50 Nasal Cannula 2.00 06/01/16 19:48 96.6 88 20 149/84 94 06/01/16 17:00 97.0 83 18 128/77 96 06/01/16 16:41 14 06/01/16 16:30 98.1 78 14 138/77 93 Nasal Cannula 3 06/01/16 16:00 77 14 131/78 95 Nasal Cannula 3 06/01/16 15:30 76 14 126/75 93 Nasal Cannula 3 06/01/16 15:00 77 14 133/81 93 Nasal Cannula 3 06/01/16 14:30 73 14 123/76 94 Nasal Cannula 3 06/01/16 14:00 72 14 131/75 94 Nasal Cannula 3 I/O 06/01/16 06/01/16 06/01/16 06/02/16 06/02/16 06/02/16 07:00 15:00 23:00 07:00 15:00 23:00 Intake Total 1800 ml 730 ml 600 ml Output Total 350 ml 300 ml 1590 ml Balance 1450 ml 430 ml -990 ml Intake Oral 730 ml 600 ml Other 1800 ml Output Urine Total 200 ml 1550 ml Drainage Total 100 ml 40 ml Estimated Blood Loss 350 ml # Bowel Movements 0 0 Result Diagram: 06/02/16 0634 06/01/16 0735 Imaging Last Impressions Hip X-Ray 06/01/16 1210 Signed Impressions: Service Date/Time: Wednesday, June 01, 2016 12:50 - CONCLUSION: Anatomic alignment. Pardeep Franco MD Chest X-Ray 06/01/16 0655 Signed Impressions: Service Date/Time: Wednesday, June 01, 2016 06:58 - CONCLUSION: 1. No acute cardiopulmonary disease. Efren Jackson MD Objective Remarks GENERAL: This is a well-nourished, well-developed patient, in no apparent distress. CARDIOVASCULAR: Regular rate and regular rhythm without murmurs, gallops, or rubs. RESPIRATORY: Clear to auscultation. Breath sounds equal bilaterally. No wheezes , rales, or rhonchi. GASTROINTESTINAL: Abdomen soft, non-tender, nondistended. Normal, active bowel sounds MUSCULOSKELETAL: Extremities without clubbing, cyanosis, or edema. NEURO: Alert & Oriented x4 to person, place, time, situation. Moves all ext x4 Medications and IVs Current Medications Povidone Iodine 1 applic 1 applic ONCE TOP ; Start 06/01/16 at 07:30; Stop at 07:29 Cefazolin Sodium/ Dextrose 50 ml @ 100 mls/hr AGILE SCRUM COACH IV Last administered on 06/01/16 08:31; Start 06/01/16 at 07:30; Stop 06/04/16 at 07:29 Tranexamic Acid 1000 mg/Sodium Chloride 110 ml @ 220 mls/hr ONCE IV ; Start 06/01/16 at 07:30; Stop 06/01/16 at 13:30; Status DC Tranexamic Acid 1000 mg/Sodium Chloride 110 ml @ 220 mls/hr ONCE IV Last administered on 06/01/16 11:35; Start 06/01/16 at 10:30; Stop 06/01/16 at 16:30; Status DC Lactated Ringer's 1,000 ml @ 30 mls/hr Q24H IV Last administered on 06/01/16 07:30; Start 06/01/16 at 07:30; Stop 06/01/16 at 15:06; Status DC Sodium Chloride (NS 500 ml Inj) 500 ml @ 30 mls/hr [id number] IV ; Start 06/01/16 at 07:30; Stop 06/01/16 at 15:06; Status DC Insulin Human Regular (NovoLIN R INJ) See Protocol Table ... UNSCH X1 PRN SQ SEE PROTOCOL; Start 06/01/16 at 07:30; Stop 06/02/16 at 07:29; Status DC Metoprolol Tartrate (Lopressor) 25 mg UNSCH X1 PRN PO SEE LABEL COMMENTS; Start 06/01/16 at 07:30; Stop 06/02/16 at 07:29; Status DC Heparin Sodium (Porcine) (Heparin Inj) 30,000 units STK-MED ONCE .ROUTE ; Start 06/01/16 at 09:00; Stop 06/01/16 at 09:01; Status DC Cefazolin Sodium (Ancef Inj) 2,000 mg STK-MED ONCE .ROUTE Last administered on 06/01/16 10:17; Start 06/01/16 at 09:06; Stop 06/01/16 at 09:07; Status DC Famotidine (Pepcid Inj) 20 mg STK-MED ONCE .ROUTE ; Start 06/01/16 at 09:26; Stop 06/01/16 at 09:27; Status DC Dexamethasone Sodium Phosphate 4 mg 4 mg STK-MED ONCE .ROUTE ; Start 06/01/16 at 09:26; Stop 06/01/16 at 09:27; Status DC Dextrose/Sodium Chloride (D5W-1/2 NS 1000 ml Inj) 1,000 ml @ 125 mls/hr Q8H IV Last administered on 06/01/16 12:30; Start 06/01/16 at 12:10 IV Flush (NS Flush) 2 ml UNSCH PRN IVF FLUSH AFTER USING IV ACCESS; Start at 12:15 IV Flush 2 ml 2 ml BID IVF Last administered on 06/02/16 09:33; Start 06/01/16 at 21:00 Cefazolin Sodium/ Sodium Chloride (Ancef Inj/NS Inj) 100 ml @ 200 mls/hr Q6H IV Last administered on 06/02/16 02:14; Start 06/01/16 at 14:00; Stop 06/02/16 at 02:29; Status DC Miscellaneous Information (Post-op Orders (for Pharmacy)) STAT ONCE XX ; Start 06/01/16 at 12:15; Stop 06/01/16 at 12:49; Status DC Rivaroxaban (Xarelto) 10 mg Q24H PO Last administered on 06/02/16 11:05; Start 06/02/16 at 11:00 Miscellaneous Medication ([facility]) ONCE ONCE XX ; Start 06/01 at 12:15; Stop 06/01/16 at 12:23; Status DC Oxycodone/ Acetaminophen (Percocet 5-325 Mg) 1 tab Q4H PRN PO PAIN LESS THAN 5 ON SCALE; Start 06/01/16 at 12:15 Oxycodone/ Acetaminophen (Percocet 5-325 Mg) 2 tab Q4H PRN PO PAIN SCALE 5 TO 10 Last administered on 06/02/16 09:33; Start 06/01/16 at 12:15 Acetaminophen 650 mg 650 mg Q6H PRN PO FEVER > 101; Start 06/01/16 at 12:15 Tranexamic Acid/ Sodium Chloride (Cyklokapron Inj/ NS Inj) 110 ml @ 200 mls/hr UNSCH IV ; Start 06/01/16 at 12:15; Stop 06/01/16 at 12:24; Status DC Docusate Sodium (Colace) 100 mg BID PRN PO CONSTIPATION; Start 06/01/16 at 12:15 Zolpidem Tartrate (Ambien) 5 mg HS PRN PO SLEEP; Start 06/01/16 at 12:15 Bisacodyl (Dulcolax Supp) 10 mg DAILY PRN [place] CONSTIPATION; Start 06/01/16 at 12: 15 Magnesium Hydroxide (Milk Of Magnesia Liq) 30 ml DAILY PRN PO CONSTIPATION; Start 06/01/16 at 12:15 Naloxone HCl (Narcan Inj) 0.4 mg UNSCH PRN IV RESPIRATORY RATE LESS THAN 10; Start 06/01/16 at 12:15 Diphenhydramine HCl (Benadryl) 25 mg Q6H PRN PO ITCHING; Start 06/01/16 at 12:15 Morphine Sulfate (Morphine 1 Mg/ ml RELIEF MANAGER) 30 mg UNSCH IV Last administered on 16:41; Start 06/01/16 at 12:15; Stop 06/03/16 at 12:14 RELIEF MANAGER Dosage Infused (Pha) 1 Q8HR .XX Last administered on 06/02/16 06:00; Start 06/01/16 at 14:00 Promethazine HCl (Phenergan Inj) 25 mg Q6H PRN IM NAUSEA OR VOMITING; Start 06/01/16 at 12:15 Albuterol Sulfate (*ALBUTEROL NEB PERIprocedure ONLY) 2.5 mg STK-MED ONCE NEB Last administered on 06/01/16 12:18; Start 06/01/16 at 12:18; Stop 06/01/16 at 12: 19; Status DC Midazolam HCl (Versed Inj) 2 mg STK-MED ONCE .ROUTE ; Start 06/01/16 at 12:23; Stop 06/01/16 at 12:24; Status DC Fentanyl Citrate (fentaNYL INJ) 250 mcg STK-MED ONCE .ROUTE ; Start 06/01/16 at 12:23; Stop 06/01/16 at 12:24; Status DC Fentanyl Citrate (fentaNYL INJ) 100 mcg STK-MED ONCE .ROUTE ; Start 06/01/16 at 12:23; Stop 06/01/16 at 12:24; Status DC Ondansetron HCl (*ZOFRAN INJ PERIprocedural ONLY) 4 mg STK-MED ONCE .ROUTE Last administered on 06/01/16 12:28; Start 06/01/16 at 12:28; Stop 06/01/16 at 12: 29; Status DC Doxepin HCl (SINEquan) 50 mg HS PO Last administered on 06/01/16 21:18; Start 06/01/16 at 21:00 Finasteride (Proscar) 5 mg DAILY PO Last administered on 06/02/16 09:32; Start 06/02/16 at 09:00 Lorazepam (Ativan) 1 mg BID PRN PO ANXIETY AND/OR AGITATION; Start 06/01/16 at 14:30 Pravastatin Sodium (Pravachol) 20 mg DAILY PO Last administered on 06/02/16 09: 32; Start 06/02/16 at 09:00 Metoprolol Tartrate (Lopressor) 50 mg DAILY PO Last administered on 06/02/16 09 :32; Start 06/02/16 at 09:00 Tamsulosin HCl (Flomax) 0.4 mg DAILY PO Last administered on 06/02/16 09:32; Start 06/02/16 at 09:00 Pantoprazole Sodium (Protonix) 40 mg DAILY PO Last administered on 06/02/16 09: 32; Start 06/02/16 at 09:00 A/P Assessment and Plan - osteoarthritis of the right hip- s/p right total hip arthroplasty continue with pain control and PT- management per ortho. -anemia- post-op; will monitor -hypertension/ dyslipidemia; resumed home meds -chronic renal insufficiency- will monitor -BPH; resumed home meds -DVT prophylaxis with xarelto-per ortho. Monique Montgomery MD Jun 02, 2016 13:40
[2016-06-02 16:00] VITALS: BP 126/81; PULSE 89; RESP 18; TEMP 97.8; O2SAT 92
[2016-06-02 20:00] VITALS: BP 177/88; PULSE 82; RESP 19; TEMP 97.8; O2SAT 93
[2016-06-02] MEDS: DOXEPIN HCL 50 MG CAP PO SCH (21:30)
[2016-06-03] VITALS: BP 162/79; PULSE 73; RESP 16; TEMP 97; O2SAT 95
[2016-06-03] MEDS: DEXT 5%-NACL 0.45% 1000 ML INJ 1,000 ML IV SCH ×4 (04:10→19:59)
[2016-06-03] MEDS: PCA - TOTAL MG MORPHINE DELIVERED PER SHIFT SCH ×4 (06:00→23:19)
[2016-06-03] MEDS: POVIDONE IODINE 7.5% SCRUB 118 ML BOTTLE TOP SCH (07:28)
[2016-06-03 08:00] VITALS: BP 143/83; PULSE 73; RESP 16; TEMP 95.7; O2SAT 94
[2016-06-03] MEDS: METOPROLOL TARTRATE 50 MG TAB PO SCH (08:34)
[2016-06-03] MEDS: PANTOPRAZOLE SOD 40 MG DELAYED RELEASE TAB PO SCH (08:34)
[2016-06-03] MEDS: PRAVASTATIN SOD 20 MG TAB PO SCH (08:35)
[2016-06-03] MEDS: SODIUM CHLORIDE 0.9% FLUSH 5 ML FLUSH IVF SCH ×2 (08:35→20:02)
[2016-06-03] MEDS: TAMSULOSIN HCL 0.4 MG CAP PO SCH (08:35)
[2016-06-03] MEDS: FINASTERIDE 5 MG TAB PO SCH (08:35)
--- NOTE | 2016-06-03 08:49 | PD.ORT.PN ---
Subjective Post Op Day #: 2 Subjective Remarks He is doing fairly well, with minimal pain. He participated in the total joint class. Distance Walked 80 feet with PT. Objective Vitals Vital Signs Date Time Temp Pulse Resp B/P Pulse Ox O2 Delivery O2 Flow Rate FiO2 06/03/16 00:00 97.0 73 16 162/79 95 06/02/16 21:23 21 06/02/16 20:00 97.8 82 19 177/88 93 06/02/16 16:00 97.8 89 18 126/81 92 06/02/16 11:57 97.6 74 18 129/80 92 I/O 06/02/16 06/02/16 06/02/16 06/03/16 06/03/16 06/03/16 07:00 15:00 23:00 07:00 15:00 23:00 Intake Total 600 ml 600 ml 720 ml 240 ml Output Total 1590 ml 1290 ml 170 ml 450 ml Balance -990 ml -690 ml 550 ml -210 ml Intake Oral 600 ml 600 ml 720 ml 240 ml Output Urine Total 1550 ml 1200 ml 150 ml 400 ml Drainage Total 40 ml 90 ml 20 ml 50 ml # Bowel Movements 0 0 0 Result Diagram: 06/02/16 0634 06/01/16 0735 Objective Remarks He is resting comfortably supine in bed in the abduction pillow. The original dressing is dry and intact. The neurovascular status is intact. Assessment & Plan Ortho Post Op Day #: 2 Problem List: Assessment and Plan Condition: Good. Orthopaedically stable. Continue postop care and PT. Discharge to SNF tomorrow per Dr. Mercer. Shaila Cali MD (Charles) Jun 03, 2016 08:49
[2016-06-03] MEDS: oxyCODONE/ACETAMINOPHEN 5 MG/325 MG TAB PO PRN ×4 (09:48→22:14)
[2016-06-03 11:48] LABS: AUTOMATED NEUTROPHIL # 7.3 TH/MM3 (1.8-7.7); BASOPHIL # 0.1 TH/MM3 (0-0.2); BASOPHIL % 0.5 % (0.0-2.0); EOSINOPHIL # 0.1 TH/MM3 (0-0.4); EOSINOPHIL % 1.3 % (0.0-4.0); HEMATOCRIT 36.2 % (39.0-51.0); HEMO FLAGS DIFF FINAL; LYMPH % 22.2 % (9.0-44.0); LYMPHOCYTE # 2.4 TH/MM3 (1.0-4.8); MEAN CELL VOLUME 97.4 FL (80.0-100.0); MEAN CORPUSCULAR HEMOGLOBIN 32.8 PG (27.0-34.0); MEAN CORPUSCULAR HGB CONC 33.7 % (32.0-36.0); PLATELET COUNT 236 TH/MM3 (150-450); RED BLOOD COUNT 3.72 MIL/MM3 (4.50-5.90); RED CELL DISTRIBUTION WIDTH 13.9 % (11.6-17.2); WHITE BLOOD COUNT 10.8 TH/MM3 (4.0-11.0)
[2016-06-03 12:00] VITALS: BP_SYST 118; BP_SYST 132; BP_DIAS 68; BP_DIAS 73; PULSE 68; PULSE 81; RESP 15; RESP 18; TEMP 96.6; TEMP 96.8; O2SAT 94; O2SAT 95
[2016-06-03 12:03] LABS: BICARBONATE 32.2 MEQ/L (21.0-32.0); MAGNESIUM 1.5 MG/DL (1.5-2.5); POTASSIUM 3.8 MEQ/L (3.5-5.1)
[2016-06-03] MEDS: RIVAROXABAN 10 MG TAB PO SCH (12:21)
[2016-06-03 16:00] VITALS: BP 148/78; PULSE 70; RESP 18; TEMP 95.8; O2SAT 98
--- NOTE | 2016-06-03 18:09 | HHI.PR ---
Subjective Remarks Follow-up Chronic kidney disease. No voiding issues. Patient indicated to avoid nephrotoxins. Discussed with RN. Objective Vitals Vital Signs Date Time Temp Pulse Resp B/P Pulse Ox O2 Delivery O2 Flow Rate FiO2 06/03/16 16:00 95.8 70 18 148/78 98 06/03/16 12:00 96.8 68 15 132/73 95 06/03/16 08:00 95.7 73 16 143/83 94 06/03/16 00:00 97.0 73 16 162/79 95 06/02/16 21:23 21 06/02/16 20:00 97.8 82 19 177/88 93 I/O 06/02/16 06/02/16 06/02/16 06/03/16 06/03/16 06/03/16 07:00 15:00 23:00 07:00 15:00 23:00 Intake Total 600 ml 600 ml 720 ml 240 ml 1000 ml Output Total 1590 ml 1290 ml 170 ml 450 ml 825 ml 50 ml Balance -990 ml -690 ml 550 ml -210 ml 175 ml -50 ml Intake Oral 600 ml 600 ml 720 ml 240 ml 1000 ml Output Urine Total 1550 ml 1200 ml 150 ml 400 ml 825 ml Drainage Total 40 ml 90 ml 20 ml 50 ml 50 ml # Voids 2 # Bowel Movements 0 0 0 Result Diagram: 06/03/16 1100 06/03/16 1100 Imaging Last Impressions Hip X-Ray 06/01/16 1210 Signed Impressions: Service Date/Time: Wednesday, June 01, 2016 12:50 - CONCLUSION: Anatomic alignment. Pardeep Franco MD Chest X-Ray 06/01/16 0655 Signed Impressions: Service Date/Time: Wednesday, June 01, 2016 06:58 - CONCLUSION: 1. No acute cardiopulmonary disease. Efren Jackson MD Objective Remarks GENERAL: This is a well-nourished, well-developed patient, in no apparent distress. CARDIOVASCULAR: Regular rate and regular rhythm without murmurs, gallops, or rubs. RESPIRATORY: Clear to auscultation. Breath sounds equal bilaterally. No wheezes , rales, or rhonchi. GASTROINTESTINAL: Abdomen soft, non-tender, nondistended. Normal, active bowel sounds MUSCULOSKELETAL: Extremities without clubbing, cyanosis, or edema. NEURO: Alert & Oriented x4 to person, place, time, situation. Moves all ext x4 A/P Assessment and Plan -osteoarthritis of the right hip- s/p right total hip arthroplasty continue with pain control counseled regarding narcotics and PT- management per ortho. -anemia-secondary to acute blood loss; will monitor. Stable -hypertension/ dyslipidemia; resumed home meds. Stable -chronic kidney disease stage III- will monitor. Avoid nephrotoxins -BPH; resumed home meds -DVT prophylaxis with xarelto-per ortho. Discharge Planning Patient medically stable Inder Tomlinson MD Jun 03, 2016 18:09
[2016-06-03] MEDS: DOXEPIN HCL 50 MG CAP PO SCH (19:58)
[2016-06-03 20:00] VITALS: BP 125/76; PULSE 86; RESP 16; TEMP 97.1; O2SAT 94
[2016-06-04 00:05] VITALS: BP 152/84; PULSE 71; RESP 20; TEMP 97.4; O2SAT 96
[2016-06-04] MEDS: oxyCODONE/ACETAMINOPHEN 5 MG/325 MG TAB PO PRN ×3 (05:23→14:30)
[2016-06-04 08:00] VITALS: BP 152/83; PULSE 76; RESP 16; TEMP 96; O2SAT 94
[2016-06-04] MEDS ORDERED: LACTULOSE SYRUP 20 GM/30 ML CUP PO PRN (08:45)
[2016-06-04] MEDS ORDERED: POLYETHYLENE GLYCOL 17 GM PKG PO SCH (09:00)
[2016-06-04] MEDS ORDERED: DOCUSATE SODIUM 50 MG/SENNA 8.6 MG TAB PO SCH (09:00)
[2016-06-04] MEDS: PANTOPRAZOLE SOD 40 MG DELAYED RELEASE TAB PO SCH (09:36)
[2016-06-04] MEDS: METOPROLOL TARTRATE 50 MG TAB PO SCH (09:37)
[2016-06-04] MEDS: TAMSULOSIN HCL 0.4 MG CAP PO SCH (09:37)
[2016-06-04] MEDS: FINASTERIDE 5 MG TAB PO SCH (09:37)
[2016-06-04] MEDS: PRAVASTATIN SOD 20 MG TAB PO SCH (09:37)
[2016-06-04] MEDS: SODIUM CHLORIDE 0.9% FLUSH 5 ML FLUSH IVF SCH (09:37)
[2016-06-04] MEDS ORDERED: LACTULOSE SYRUP 20 GM/30 ML CUP PO ONE (09:45)
[2016-06-04] MEDS ORDERED: SENN1TAB PO (09:54)
--- NOTE | 2016-06-04 09:55 | HHI.PR ---
Subjective Remarks Follow-up kidney disease. No voiding issues. Still no bowel movement but passing gas. Denies abdominal pain and nausea. Discussed with RN Objective Vitals Vital Signs Date Time Temp Pulse Resp B/P Pulse Ox O2 Delivery O2 Flow Rate FiO2 06/04/16 08:00 96.0 76 16 152/83 94 06/04/16 00:05 97.4 71 20 152/84 96 06/03/16 20:00 97.1 86 16 125/76 94 06/03/16 16:00 95.8 70 18 148/78 98 06/03/16 12:00 96.8 68 15 132/73 95 I/O 06/03/16 06/03/16 06/03/16 06/04/16 06/04/16 06/04/16 07:00 15:00 23:00 07:00 15:00 23:00 Intake Total 240 ml 1000 ml 720 ml 480 ml Output Total 450 ml 825 ml 350 ml 600 ml Balance -210 ml 175 ml 370 ml -120 ml Intake Oral 240 ml 1000 ml 720 ml 480 ml Output Urine Total 400 ml 825 ml 300 ml 600 ml Drainage Total 50 ml 50 ml # Voids 2 # Bowel Movements 0 Result Diagram: 06/03/16 1100 06/03/16 1100 Objective Remarks GENERAL: This is a well-nourished, well-developed patient, in no apparent distress. CARDIOVASCULAR: Regular rate and regular rhythm without murmurs, gallops, or rubs. RESPIRATORY: Clear to auscultation. Breath sounds equal bilaterally. No wheezes , rales, or rhonchi. GASTROINTESTINAL: Abdomen soft, non-tender, nondistended. Normal, active bowel sounds MUSCULOSKELETAL: Extremities without clubbing, cyanosis, or edema. NEURO: Alert & Oriented x4 to person, place, time, situation. Moves all ext x4 A/P Assessment and Plan -osteoarthritis of the right hip- s/p right total hip arthroplasty continue with pain control counseled regarding narcotics and PT- management per ortho. -anemia-secondary to acute blood loss; will monitor. Stable -hypertension/ dyslipidemia; resumed home meds. Stable -chronic kidney disease stage III- will monitor. Avoid nephrotoxins -BPH; resumed home meds -Constipation. Start Aditi-Colace. DVT prophylaxis with xarelto-per ortho. Discharge Planning Patient medically stable Inder Tomlinson MD Jun 04, 2016 09:55
[2016-06-04 12:00] VITALS: BP 138/87; PULSE 69; RESP 16; TEMP 96.3; O2SAT 96
[2016-06-04] MEDS: PCA - TOTAL MG MORPHINE DELIVERED PER SHIFT SCH (12:32)
[2016-06-04] MEDS: RIVAROXABAN 10 MG TAB PO SCH (12:32)
--- NOTE | 2016-06-12 20:45 | MD ---
cc: CHRIS ORELLANA M.D. ADMISSION DATE: 06/01/2016 DISCHARGE DATE: 06/04/2016 ADMITTING DIAGNOSIS: 1. Osteoarthritis of the right hip. 2. Effusion right hip. 3. Pain right hip. 4. Gait disturbance. BRIEF HISTORY: The patient is a 70-year-old white male who has experienced pain of his right hip of at least six months duration. He had noted the gradual onset of his symptoms generalized about the right groin area that had been aggravated by weightbearing activities. He had conformed to conservative management in the past which had included a walking exercise program but became significantly incapacitated with regards to all weightbearing activities. In addition, he had tried taking a number of different prescribed medications which included diclofenac 75 milligrams, prednisone 10 milligrams, and hydrocodone 7.5 mg. He had become progressively more incapacitated with pain that required use of a walker as an ambulatory aid. He was unable to conform to therapy intervention because of his symptoms but he did tried to conform to an exercise program under his own supervision. Unfortunately he became progressively more incapacitated and returned to the office in the recent past at which time x-ray studies revealed obvious degenerative changes about the hip joint with narrowing of the joint space and hypertrophic bony reaction. Findings and treatment options were reviewed. The patient did subsequently undergo an MRI scan, the results of which identified degenerative arthritis and narrowing of the articular cartilage and edema of the subcortical medullary bone about the roof of the acetabulum. There was separation of the labrum about the rim of the acetabulum and an effusion within the joint space. The patient described ongoing pain about his right hip that had been aggravated by all forms of weightbearing activities. He subsequently had to discontinue his exercise routine which initially had included playing golf as well as a walking exercise program. He returned to the office indicating his desire to proceed with a more definitive course of treatment. The involvement of total hip arthroplasty was outlined in detail with emphasis being made that the decision to proceed with surgery would be left entirely to the patient's discretion. He readily admitted that his symptoms had progressed to a point in time where he was in need of such treatment and in compliance with his wishes he was scheduled for admission at this time in order that the above be accomplished. His physical examination at the time of admission revealed no localizing tenderness about the hip. There was restricted mobility of the hip joint being most pronounced with internal rotation and pain at the extremes of motion. No sensation of crepitation or instability. Straight-leg raising was unremarkable at 80 degrees. Edin's sign positive. Distal sensory grossly intact. Subtle suggestion for limb length discrepancy with shortening on the right side. Antalgic gait. HOSPITAL COURSE: Prior to admission to the hospital, the patient had undergone medical evaluation and clearance for surgery as completed by his primary care physician, Dr. Song Harper. He was taken to the operating room on 01 June 2016, and on that date underwent a right total hip arthroplasty completed an uncomplicated manner. The patient was noted to have tolerated his operative procedure well and his postoperative course stable thereafter. He was progressively mobilized under the guidance of physical therapy being permitted weightbearing to tolerance about the right lower extremity. Follow up examination of the surgical wound noted it to be intact healing favorably with no evidence of infection. Medical followup per the hospitalist service. DVT prophylaxis initiated. food services coordinator consulted to assist with discharge planning. The patient had expressed his desire for temporary rehab placement following discharge from the hospital. Plans were finalized in this regard and pending medical clearance he was scheduled for transfer on the third postoperative day at which time he was noted to be making favorable progress with regards to his rehab program. He was scheduled be seen in office followup in approximately four weeks. His condition at the time of discharge was stable. Prognosis favorable DISCHARGE MEDICATIONS: 1. Percocet 5 milligrams #60. 2. Aspirin 325 milligrams one tab twice a day for four weeks #60. MD AMADO Howe/JCC /5:13 PM /8:35 PM
== END 2016-06-04 17:30 | DRG 470 ==
LOC: HSDI 06-01 06:29 → N06B 06-01 17:08 → N06A 06-01 21:20
PROVIDERS: ADMIT Orthopaedic Surgery; ATTEND Orthopaedic Surgery
PROC: 0SR903A Replacement of Right Hip Joint with Ceramic Synthetic Substitute, Uncemented, Open Approach (ICD-10-PCS; principal; 2016-06-01 09:33)
DX: M16.11 Unilateral primary osteoarthritis, right hip (principal); N18.3 Chronic kidney disease, stage 3 (moderate); I12.9 Hypertensive chronic kidney disease with stage 1 through stage 4 chronic kidney disease, or unspecified chronic kidney disease; D62 Acute posthemorrhagic anemia; F32.9 Major depressive disorder, single episode, unspecified; K21.9 Gastro-esophageal reflux disease without esophagitis; Z96.1 Presence of intraocular lens; Z96.653 Presence of artificial knee joint, bilateral; Z96.611 Presence of right artificial shoulder joint; N40.0 Benign prostatic hyperplasia without lower urinary tract symptoms; F41.9 Anxiety disorder, unspecified; F17.210 Nicotine dependence, cigarettes, uncomplicated; E78.5 Hyperlipidemia, unspecified; K59.00 Constipation, unspecified
CPT/HCPCS: 71010; 73501; 80048; 81001; 83735; 85014; 85018; 85025; 85610; 86850; 86900; 86901; 86920; 86922; 88304; 88311; 94150; 94664; C1776; J0690; J1100; J1644; J2250; J2270; J2370; J2405; J3010; J7120; J7613

== ENCOUNTER 2016-07-05 20:25 | Inpatient (IN) | payer MEDICARE ==
[~2016-07-05 20:25] MED LIST changes: +3-IN3MIS PR; +ASPI325T PO; +DOXE50CA3 PO; -LISI2.5T3 PO; +LORA-474 PO; -LORA1TAB PO; -LORTA5 PO; -METO25 PO; +METO50TA PO; +OXYC1TAB63 PO; +PREV30CA11 PO; -PREV30CA36 PO; +PROS5TAB PO; -PROS5TAB2 PO; -REST15CA PO; -RIVA10 PO; +SENN1TAB PO; -SERT-129 PO; -TAMS0.4C67 PO; +TAMS5CAP PO; -VITA20002 PO; +WALKER WHEELS/F1 MIS
[2016-07-05 20:46] VITALS: BP 139/72; PULSE 86; RESP 18; TEMP 98.2; O2SAT 97
[2016-07-05] MEDS ORDERED: ESCI20TA PO (21:35)
[2016-07-05] MEDS ORDERED: OMEP20CA2 PO (21:38)
[2016-07-05] MEDS ORDERED: AMLO5TAB2 PO (21:40)
[2016-07-05] MEDS ORDERED: METO50TA11 PO (21:44)
[2016-07-06] MEDS ORDERED: DEXT 5%-NACL 0.45% 1000 ML INJ 1,000 ML IV SCH (02:15)
[2016-07-06] MEDS ORDERED: MEPERIDINE HCL 50 MG/ML VIAL IM PRN (02:15)
[2016-07-06] MEDS ORDERED: ONDANSETRON HCL 4 MG/2 ML VIAL IV PUSH PRN (02:15)
[2016-07-06] MEDS ORDERED: ceFAZolin 1,000 MG/NS 100 ML IV ONE ×2 (02:45)
[2016-07-06 03:47] LABS: AUTOMATED NEUTROPHIL # 6.8 TH/MM3 (1.8-7.7); BASOPHIL % 0.3 % (0.0-2.0); EOSINOPHIL % 0.5 % (0.0-4.0); HEMATOCRIT 36.6 % (39.0-51.0); HEMO FLAGS DIFF FINAL; LYMPH % 12.6 % (9.0-44.0); LYMPHOCYTE # 1.1 TH/MM3 (1.0-4.8); MEAN CORPUSCULAR HEMOGLOBIN 31.5 PG (27.0-34.0); MEAN CORPUSCULAR HGB CONC 34.2 % (32.0-36.0); MONO % 11.3 % (0.0-8.0); NEUT % 75.3 % (16.0-70.0); PLATELET COUNT 195 TH/MM3 (150-450); RED BLOOD COUNT 3.98 MIL/MM3 (4.50-5.90); RED CELL DISTRIBUTION WIDTH 13.2 % (11.6-17.2)
[2016-07-06 04:28] VITALS: BP 136/75; PULSE 85; RESP 18; TEMP 98.2; O2SAT 97
[2016-07-06 07:21] VITALS: BP 147/73; PULSE 93; RESP 18; TEMP 96.7; O2SAT 95
--- NOTE | 2016-07-06 07:30 | MH ---
cc: QUOC MERCER DATE OF ADMISSION: 07/05/2016 ADMISSION DIAGNOSIS Wound dehiscence right hip, status post recent right total hip arthroplasty. HISTORY The patient is a 70-year-old white male who was admitted to [facility] within the previous month and on June 01 underwent a right total hip arthroplasty for history of osteoarthritis of his right hip. The patient was noted to have tolerated his operative procedure well and his postoperative course stable thereafter. He was progressively mobilized being permitted weightbearing to tolerance about his right lower extremity and subsequently discharged from the hospital to a local rehab facility where he continued to make favorable progress with regards to resuming ambulatory activities. He was subsequently discharged home where he had continued with his postoperative rehabilitation and was seen in office followup approximately one month postoperatively at which time he was noted to be doing quite well. He was ambulating independently at that time and his wound was healing favorably with no evidence of infection. He was encouraged to continue with his rehab program and scheduled for office follow-up several months thereafter. Unfortunately, within the previous two days he describes getting out of bed at home and thereafter falling to the floor level with blunt trauma to his right hip occurring. One day thereafter he was evaluated in the emergency room of [facility] where she was seen by the emergency room physician, Dr. Silas Norton, as well as the PA-C, Mr. Silas Whitlock. The patient was noted to have an obvious wound dehiscence at that time for which the undersigned physician was subsequently contacted by telephone to advise of the patient's condition. At that time this surgeon indicated that he felt that the patient should be treated with regards to his wound dehiscence involving a debridement of his wound with irrigation and secondary closure with the patient being initiated into a course of antibiotic management. Unfortunately the ER physician, Dr. Norton, indicated she was not capable of performing such services and did not feel that local orthopedic surgeons would be willing to accept the patient for further management in this regard. Emphasis was made by this physician that it would be considerably inappropriate to discharge the patient from the emergency room with an open wound as described but in spite of this indication, the patient was discharged from the ER setting in [place]. The patient himself contacted the undersigned physician by telephone and at that time he was directed to go directly to the emergency room of [facility] where it was anticipated that he would be admitted to the hospital for further disposition as described above. The emergency room was contacted with regards to the patient being a direct admission with the request being made that the patient be admitted to the [facility] to facilitate admission to the hospital with orthopedic management being assumed by the undersigned physician. Unfortunately, the on-call [facility] physician, Dr. Martino, indicated he was not willing to admit the patient to the [facility] and thus the undersigned assumed the responsibility to facilitate the patient being treated in an appropriate manner and thus he is being admitted at this time in order that appropriate treatment be completed. PAST MEDICAL HISTORY, HOSPITALIZATIONS AND SURGERIES 1. Tonsillectomy. 2. Bilateral cataract excision with intraocular lens implants. 3. Colonoscopy. 4. Bilateral total knee arthroplasties. 5. Right reverse shoulder arthroplasty. 6. Medical management for a ruptured esophagus. MEDICAL ILLNESSES 1. Hypertension. 2. Acid reflux. 3. Anxiety. 4. Depression. 5. BPH. MEDICATIONS 1. Flomax 0.4 mg daily. 2. Prevacid daily. 3. Lovastatin 20 mg daily. 4. Metoprolol 25 mg daily. 5. Finasteride 5 mg daily. 6. Ativan 0.5 mg p.r.n. 7. Temazepam 15 mg at bedtime. ALLERGIES There no indicated drug allergies. REVIEW OF SYSTEMS He does wear glasses. No headache or syncope. 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 Auditory acuity intact. No tinnitus. No bleeding gums or dysphagia. No cough, shortness of breath, upper respiratory infection, pneumonia or tuberculosis. No angina or heart disease. He is medically managed for hypertension. Appetite good. Bowel movements regular. No hepatitis, gallbladder disease, ulcers or hemorrhoids. He has had a history of urinary tract infection. No kidney stones. He has one functioning kidney on the right side, history of BPH. No previous fractures. No psychiatric illness, although he has been treated for depression and anxiety. Remaining review of systems is unremarkable and noncontributory. FAMILY HISTORY The patient has cohabitated for more than 20 years. His partner is 70 years of age and described as being in good health. No children. Family history is positive for hypertension, dementia and Alzheimer's disease. SOCIAL HISTORY The patient completed a college education. He has been retired for at least 6 years from active employment. He has had a history of heavy ethanol consumption in the past. He drinks socially at this time. He has been a heavy smoker with a 50 pack-year use of tobacco. At his peak he smoked two packs per day but currently limits it to no more than 2-3 cigarettes daily. PHYSICAL EXAMINATION VITAL SIGNS: Height 6 feet, weight 204 pounds. GENERAL: An alert, oriented and responsive 70-year-old white male resting quietly in an emergency room that with no obvious distress. HEAD, EYES, EARS, NOSE, AND THROAT: Pupils are equally round and reactive to light. Extraocular movements full. Sclerae clear. External nares clear. External auditory canals clear. Dental intact. Mucous membranes pink and moist. Pharynx clear. NECK: Supple. Active range of motion. No significant pain. Carotid pulse palpable bilaterally. Trachea midline. Thyroid without enlargement. LUNGS: Clear to auscultation and percussion. No CVA tenderness. No discomfort throughout the dorsolumbar spine. HEART: Regular rhythm. No murmur or gallop. ABDOMEN: Soft, nontender. Bowel sounds present. RECTAL: Per primary care physician. EXTREMITIES: Right Hip - A surgical wound about the right hip area is dehisced involving the inferior half of the incision of at least 10-12 cm magnitude. There is no active drainage from the hip wound appreciated this time. The patient is able to demonstrate active mobility of his right hip without significant pain associated. Distal neurovascular status grossly intact. NEUROLOGIC: Cranial nerves II-XII grossly intact. IMPRESSION Wound dehiscence right hip status post total hip arthroplasty. Pain right hip. PLAN Wound debridement, irrigation and secondary closure right hip. IV antibiotic management. The nature of the planned surgical procedure, the potential complications and risks associated, the expectations of surgery and the consent form were reviewed thoroughly at this time. Sven has indicated his full understanding regarding all of the above and given consent to proceed with treatment as outlined. Quoc Mercer MD NBS/SSB /6:39 AM /7:11 AM
[2016-07-06 11:20] VITALS: BP 157/79; PULSE 90; RESP 18; TEMP 96; O2SAT 92
[2016-07-06] MEDS ORDERED: GENTAMICIN SULFATE 80 MG/2 ML VIAL ONE (13:58)
[2016-07-06] MEDS ORDERED: LIDOCAINE HCL 2% 50 ML VIAL ONE (13:58)
[2016-07-06] MEDS ORDERED: LIDOCAINE HCL 2% 50 ML VIAL OTHER ONE (14:30)
[2016-07-06 15:06] VITALS: BP 154/81; PULSE 86; RESP 18; TEMP 96.2; O2SAT 92
[2016-07-06] MEDS ORDERED: ZOLPIDEM TARTRATE 10 MG TAB PO PRN (16:00)
[2016-07-06] MEDS: ceFAZolin 1,000 MG/NS 100 ML IV SCH ×4 (16:29→23:58)
[2016-07-06] MEDS ORDERED: LORazepam 2 MG TAB PO PRN (17:00)
[2016-07-06 19:48] VITALS: BP 129/67; PULSE 88; RESP 20; TEMP 98.5; O2SAT 93
[2016-07-06 23:23] VITALS: BP 136/77; PULSE 85; RESP 20; TEMP 98.6; O2SAT 95
[2016-07-07 01:01] VITALS: RESP 16
[2016-07-07] MEDS ORDERED: amLODIPine BESYLATE 5 MG TAB PO SCH (09:00)
[2016-07-07] MEDS ORDERED: TAMSULOSIN HCL 0.4 MG CAP PO SCH (09:00)
[2016-07-07] MEDS ORDERED: METOPROLOL SUCCINATE 50 MG EXTENDED RELEASE TAB PO SCH (09:00)
[2016-07-07] MEDS ORDERED: FINASTERIDE 5 MG TAB PO SCH (09:00)
[2016-07-07] MEDS ORDERED: ESCITALOPRAM OXALATE 20 MG TAB PO SCH (09:00)
[2016-07-07] MEDS ORDERED: PRAVASTATIN SOD 20 MG TAB PO SCH (09:00)
[2016-07-07] MEDS ORDERED: PANTOPRAZOLE SOD 20 MG DELAYED RELEASE TAB PO SCH (09:00)
--- NOTE | 2016-07-11 10:34 | MP ---
cc: CHRIS MERCER DATE OF SURGERY: 07/06/2016 PREOPERATIVE DIAGNOSIS: Wound dehiscence of the right hip status post total hip arthroplasty. POSTOPERATIVE DIAGNOSIS: Wound dehiscence of the right hip status post total hip arthroplasty. OPERATIVE PROCEDURE PERFORMED: Through wound irrigation and limited debridement followed by secondary closure. SURGEON: Chris Mercer MD. INDICATIONS FOR THE PROCEDURE/HISTORY: The patient is a 70-year-old white male who had undergone a previous right total hip arthroplasty within the past 5-6 weeks and had done quite well thereafter. Unfortunately two days prior to this current admission he fell while getting out of bed at home sustaining blunt trauma to his right hip. He was not aware of any immediate problems but within the following several hours he became aware of an obvious opening about his right hip wound site. He was initially evaluated in the emergency room of [facility] where unfortunately the emergency room physician indicated his lack of ability and/or qualification to treat the patient's problem nor was he able to secure any local physician in the community who might be able to assist with patient management. The patient was subsequently discharged from the emergency room and upon contacting this physician, he was directed to [facility] where he was admitted for further disposition. DESCRIPTION OF THE PROCEDURE IN DETAIL / FORMAT: The patient had initially been scheduled to be taken to the operating room on the indicated date for a thorough wound irrigation with debridement and closure. Unfortunately, the operating room closed in its entirety due to a humidity problem and thus all surgical procedures excluding specific traumas and life-threatening emergencies were cancelled. Given this scenario and not wanting the patient to have to be delayed in any further treatment, it was elected to proceed with a local procedure in the emergency room setting. Following a thorough prepping with Betadine solution and draping into a sterile field while the patient was maintained in a left lateral decubitus fashion, local anesthesia was accomplished with 2% plain lidocaine. The wound was thereafter copiously irrigated with 3 liters of antibiotic saline solution followed by a limited debridement and thereafter closure of the wound was accomplished in layers with the deeper tissues being reapproximated with a running #0 Vicryl suture and the remaining portion of the wound being closed in layers with skin margins approximated with a running subcuticular 3-0 Vicryl suture over which Steri-Strips were applied. It should be noted that the depth of the wound was limited to the superficial layer of the subcutaneous tissue and there was no violation of the underlying joint space nor was any arthroplasty hardware exposed. Upon completion of the procedure, a dry sterile dressing was placed. The patient was maintained in the emergency room setting while being monitored. He was noted to have tolerated the procedure well without difficulty or any significant discomfort and there was blood loss associated. MD AMADO Howe/JCC /5:35 PM /10:31 AM
--- NOTE | 2016-07-11 15:05 | MD ---
cc: CHRIS ORELLANA ADMISSION DATE: 07/05/2016 DISCHARGE DATE: 07/07/2016 ADMISSION DIAGNOSIS Wound dehiscence of the right hip, status post right total hip arthroplasty. HISTORY OF PRESENT ILLNESS/HOSPITAL COURSE The patient is a 70-year-old white male who was admitted to [facility] on the 01 of June of this year, at which time he underwent a right total hip arthroplasty for history of osteoarthritis. He was noted to have tolerated his operative procedure well and was mobilized thereafter and was discharged to rehab facility where he continued to make favorable progress and subsequently discharged home. He was seen in the office approximately 1 month postoperatively and at that time was doing quite well with regards to his rehab program. His wound was healing favorably, there was no suggestion for infection and he was ambulating independently at that time. Unfortunately, approximately 2 days prior to this current admission he reports that he fell at home with blunt trauma to his right hip occurring 1 day thereafter. He was evaluated in the emergency room of [facility] where he was seen by Dr. Silas Norton. At that time he was noted to have an obvious wound dehiscence for which the undersigned physician was subsequently contacted by telephone to advise of the patient's condition. At that time it was the recommendation of this physician that the patient should be treated with regards to his wound dehiscence while in the emergency room setting or possibly being referred to a local orthopedic surgeon to facilitate management of his condition. Dr. Norton the emergency room physician indicated that he was incapable of performing such services and did not feel that he would be able to obtain local orthopedic surgeon to except further management of the patient. Emphasis was made by the undersigned physician that was considered to be inappropriate to discharge the patient from the emergency room setting with an open wound but in spite of this indication the patient was discharged from the emergency room in the [place] area. The patient himself subsequently contacted the undersigned physician with regards to his situation and at that time he was advised to proceed directly to the emergency room of [facility] where he was admitted to the hospital for further disposition. His physical examination at the time of admission revealed an approximately 10-12 cm wound dehiscence about the inferior aspect of the incision about his right hip area. The incision was noted to extend into the subcutaneous tissue but did not violate the deeper structures, nor was the hip joint exposed. There was no indication that total hip implants were part of the wound issue. Upon admission to the hospital it was anticipated that the patient might be taken to the operating room for irrigation, limited debridement and secondary closure. He was scheduled accordingly in this regard but unfortunately on the day of his planned surgery issues arose within the operating room environment secondary to a humidity factor for which all cases were cancelled. Given the overall situation and the desire to treat the patient in a timely manner, he underwent the described procedure above in the emergency room setting under local anesthesia utilizing 2% plain lidocaine with sterile technique adhered to. The patient was noted to have tolerated his operative procedure well and his postoperative course stable thereafter. He was allowed progressive mobilization, weightbearing to tolerance about the right lower extremity. His wound was intact and dressing remained in place. He was discharged home on the first postoperative day in a stable condition, being instructed to maintain a scheduled office followup over the following 2 months. He was given additional instruction with regards to wound management and was prescribed Keflex 500 mg four times daily for the following 10 days for additional antibiotic prophylaxis. Prognosis is favorable. MD AMADO Howe/TLL /7:02 AM /2:53 PM
== END 2016-07-07 09:42 | disposition home or self-care (01) | DRG 909 ==
LOC: NEPGCP 20:25
PROVIDERS: ADMIT Orthopaedic Surgery; ATTEND Orthopaedic Surgery
PROC: 0JDL3ZZ Extraction of Right Upper Leg Subcutaneous Tissue and Fascia, Percutaneous Approach (ICD-10-PCS; principal; 2016-07-06)
DX: T81.31XA Disruption of external operation (surgical) wound, not elsewhere classified, initial encounter (principal); I10 Essential (primary) hypertension; Z96.1 Presence of intraocular lens; Z96.611 Presence of right artificial shoulder joint; Z96.641 Presence of right artificial hip joint; Y83.8 Other surgical procedures as the cause of abnormal reaction of the patient, or of later complication, without mention of misadventure at the time of the procedure; Y92.9 Unspecified place or not applicable; Z96.653 Presence of artificial knee joint, bilateral; K21.9 Gastro-esophageal reflux disease without esophagitis; F32.9 Major depressive disorder, single episode, unspecified; F41.9 Anxiety disorder, unspecified; N40.0 Benign prostatic hyperplasia without lower urinary tract symptoms; F17.210 Nicotine dependence, cigarettes, uncomplicated
CPT/HCPCS: 85025; J0690; J1580